=== PATIENT | female | born 1965 | race African-American/Black ===

== ENCOUNTER → 2017-03-11 | Outpatient (CLI) | payer MEDICARE, OTHER ==
--- NOTE | 2017-03-11 16:46 | RADIOLOGY REPORT (SQ) ---
EXAM DESCRIPTION: CT FACIAL AREA WITHOUT COMPLETED DATE/TIME: 03/11/2017 3:59 pm REASON FOR STUDY: CHRONIC SINUSITIS, UNSPECIFIED J32.9 CHRONIC SINUSITIS, UNSPECIFIED COMPARISON: None. TECHNIQUE: Noncontrasted images through the facial bones and orbits windowed for bone and soft tissu e. Additional coronal and sagittal reconstructed images reviewed. All images stored on PACS. All CT scanners at this facility use dose modulation, iterative reconstruction, and/or weight based d osing when appropriate to reduce radiation dose to as low as reasonably achievable (ALARA). [facility]: Dose Right [facility]: CareDose [facility]: Dose Right [facility]: Teradose 4D [facility]: uchoose RADIATION DOSE: Total exam DLP: 742 mGy cm. LIMITATIONS: None. FINDINGS: FACIAL BONES: No fracture or bone lesion. Degenerative joint changes seen in the temporom andibular joints. ORBITS: Intact. No fracture. Symmetric intact globes and retroorbital soft tissues. PARANASAL SINUSES: Clear. No significant mucosal thickening, mass or fluid. No nasal polyps. Maxill andrzej sinus outlets are patent. SOFT TISSUES: No mass or edema. INFERIOR BRAIN: No significant abnormality. OTHER: No other significant finding. IMPRESSION: 1. Normal sinuses. 2. Degenerative joint disease in the temporomandibular joints bilaterally. TECHNICAL DOCUMENTATION: JOB ID: [id number] Quality ID # [id number]: Final reports with documentation of one or more dose reduction techniques (e.g., Au tomated exposure control, adjustment of the mA and/or kV according to patient size, use of iterative reconstruction technique) 2010 [employer]- All Rights Reserved
== END ==
LOC: RAD 15:22
PROVIDERS: ATTEND Internal Medicine
DX: J32.9 Chronic sinusitis, unspecified (principal)
CPT/HCPCS: 70486

== ENCOUNTER 2018-01-17 20:10 | Emergency (ER) | payer MEDICARE, OTHER ==
--- NOTE | 2018-01-17 20:46 | EKG REPORT ---
SEVERITY:- ABNORMAL ECG - SINUS RHYTHM PROBABLE INFERIOR INFARCT, AGE INDETERMINATE BORDERLINE R WAVE PROGRESSION, ANTERIOR LEADS : Confirmed by: Estevan Li 17-Jan-2018 20:45:29
--- NOTE | 2018-01-17 21:00 | ER Document Report ---
ED General - General Chief Complaint: Breathing Difficulty Stated Complaint: DIFFICULTY BREATHING Time Seen by Provider: 01/17/18 20:29 Cannot obtain history due to: Uncooperative Notes: Patient is a 52-year-old female who presents with a chief complaint of left foot pain with associated left foot swelling. She states that this started after she stepped on something in her home yesterday. She states that since that time she has had swelling to the entirety of the left leg. She denies a history of similar symptoms in the past. She is unable to identify what improves or worsens her discomfort the leg. Notes that she has been able to walk. She has not seen her general doctor regarding this concern. She denies fever or constitutional symptoms. Although in triage patient apparently initially complained of shortness of breath when I initially bring this concern up to her she angrily replies "I cannot believe that you think I have shortness of breath and loss of voice, where did you get that idea?" When I informed the patient that this is based on triage assessment she states "I was driving here to have the left foot looked at when I became a little short of breath. This is definitely not how I normally breathe". When I asked her to clarify her shortness of breath she does become quite agitated, refuses to further clarify. TRAVEL OUTSIDE OF THE [place] IN LAST 30 DAYS: No Past Medical History - General Information source: Patient - Social History Smoking Status: Never Smoker Chew tobacco use (# tins/day): No Frequency of alcohol use: None Drug Abuse: None Family History: Reviewed & Not Pertinent Patient has suicidal ideation: No Patient has homicidal ideation: No Endocrine Medical History: Reports: Hx Diabetes Mellitus Type 2 Renal/ Medical History: Denies: Hx Peritoneal Dialysis Musculoskeletal Medical History: Reports Hx Arthritis - RA Past Surgical History: Reports: Hx Hysterectomy, Hx Orthopedic Surgery - bilateral hip replacement Review of Systems - Review of Systems Notes: Constitutional: Negative for fever. HENT: Negative for sore throat. Eyes: Negative for visual changes. Cardiovascular: Negative for chest pain. Respiratory: Positive for shortness of breath. Gastrointestinal: Negative for abdominal pain, vomiting or diarrhea. Genitourinary: Negative for dysuria. Musculoskeletal: Positive for left foot pain and left leg pain Skin: Negative for rash. Neurological: Negative for headaches, weakness or numbness. 10 point ROS negative except as marked above and in HPI. Physical Exam - Vital signs Vitals: Temp Pulse Resp BP Pulse Ox 97.8 F 86 24 H 137/78 H 100 01/17/18 20:26 01/17/18 20:26 01/17/18 20:26 01/17/18 20:26 01/17/18 20:26 Interpretation: Normal - Patient is not tachypneic at the time of my assessment Notes: PHYSICAL EXAMINATION: GENERAL: Well-appearing, well-nourished and in no acute distress. HEAD: Atraumatic, normocephalic. EYES: Pupils equal round and reactive to light, extraocular movements intact, sclera anicteric, conjunctiva are normal. ENT: nares patent, oropharynx clear without exudates. Moist mucous membranes. NECK: Normal range of motion, supple without lymphadenopathy LUNGS: Breath sounds clear to auscultation bilaterally and equal. No wheezes rales or rhonchi. HEART: Regular rate and rhythm without murmurs ABDOMEN: Soft, obese abdomen, nontender, normoactive bowel sounds. No guarding , no rebound. No masses appreciated. EXTREMITIES: Normal range of motion, no pitting or edema. No cyanosis. NEUROLOGICAL: No focal neurological deficits. Moves all extremities spontaneously and on command. PSYCH: Speaking in a very loud, aggressive tone. Gives very terse answers to my questions. SKIN: Warm, Dry, normal turgor, there is a small ecchymosis to the medial, mid plantar aspect of the left foot. There is no appreciable swelling or edema of the foot. Course - Re-evaluation Re-evalutation: 01/17/18 20:59 Patient presents with multiple and varying complaints. Her initial concern is that she stepped on something in her house with her left foot yesterday and has been having swelling and pain to the entirety of her left leg that is not appreciable on examination. There is no notable erythema, warmth to the extremity, no appreciable edema or pain behind the popliteal fossa of the left lower extremity. She does have risks for venous thromboses including lupus and rheumatoid arthritis. The patient also states that while being transported to the emergency department she began having "breathing that is different than my normal". She is saturating 100% on room air, not tachycardic, not tachypneic, very low clinical suspicion for an acute pneumonia, pulmonary embolus, pneumothorax. Will obtain chest x-ray, basic labs, obtain x-ray of the left foot and venous ultrasound given the patient's complaint of subjective edema. 01/17/18 22:49 Patient has consistently refused labs. She refuses to allow us to draw anywhere other than her right antecubital fossa and has pulled out the needle when blood draws were initiating blood flow. The patient consistently states that she cannot breathe even though she is lying in bed without any discomfort, saturating 100% on room air breathing approximately 16-18 times per minute. She has no wheezes or rales. Her chest x-ray is clear. Her EKG is unremarkable. Of note, she becomes very angry when I state that she came today for SOB. The patient had complained of left lower extremity pain which she repeatedly states is the reason she came today. A venous Doppler and x-ray are unremarkable. I see no evidence of a laceration or any evidence of a cellulitis. The patient has consistently demonstrated unwillingness to comply with our treatment plan here in the emergency department and I do not believe that I have been able to successfully establish a therapeutic relationship with her in the emergency department. On multiple occasions have attempted to redirect the patient and encouraged her to comply with our prescribed treatment plan as I cannot definitively exclude ACS as an etiology of her reported shortness of breath without a troponin marker. However the patient has consistently declined blood draws and at this point I do not see how we can go forward. When I attempted to discuss options for going forward with the patient she stated "you and your entire staff here are completely incompetent". She repeatedly accuses me of not having listen to her complaint and refuses to allow me to answer her accusations. She continues comes back to the fact that she never said she was short of breath and that she was here for her left foot pain and left foot swelling. I did again advise the patient that she has repeatedly complained of shortness of breath including in triage, to the initial nursing assessment, as well as to me during my assessment. When I do get the patient to calm down to allow me to address her concerns, I advised her that we did hear her concerns regarding her left foot. I again reviewed her workup regarding her left leg and the results. Patient continues to be extremely agitated stating that this was not a sufficient workup. I have advised the patient that we could obtain blood from a different site which she refuses stating that are nurses and technicians do not know how to get blood, have hurt her, and that she will not allow any further draws. The patient has been extremely hostile since the beginning of our encounter. She states that I am supposed to speak to a doctor who has called to the emergency department but I have received no calls in regards this patient's care. At this point I have encouraged the patient to follow-up with her primary care doctor and have reviewed with her return precautions. She will be discharged. - Vital Signs Vital signs: Temp Pulse Resp BP Pulse Ox 97.8 F 86 20 124/81 100 01/17/18 20:26 01/17/18 20:26 01/17/18 23:00 01/17/18 22:01 01/17/18 21:34 - Laboratory Laboratory results interpreted by me: 01/17/18 21:31 POC Glucose 242 H - Diagnostic Test Radiology reviewed: Image reviewed, Reports reviewed Radiology results interpreted by me: 01/17/18 22:52 Chest x-ray: No acute infiltrate or pneumothorax Left foot x-ray: No acute fracture or dislocation. - EKG Interpretation by Me Additional EKG results interpreted by me: 01/17/18 22:53 Sinus rhythm. Rate 83. No ST elevations or depressions. QTC is 423. Discharge - Discharge Clinical Impression: Left foot pain, Left leg swelling, Shortness of breath Condition: Good Disposition: HOME, SELF-CARE Additional Instructions: You have been unwilling to allow us to perform blood draws today so we are unable to complete a full evaluation. However, your chest x-ray, EKG, ultrasound of your leg and x-ray of your foot are all normal and did not suggest any acute pathology. I encourage you to follow-up with your primary care doctor at your earliest ability. Please return for any additional concerns you may have including worsening or shortness of breath, worsening of your leg pain, vomiting, fever greater than 100.4F, or any other symptoms that are worrisome to you. Referrals: MORGAN GONZALEZ MD [Primary Care Provider] - Follow up as needed
--- NOTE | 2018-01-17 21:32 | RADIOLOGY REPORT (SQ) ---
EXAM DESCRIPTION: FOOT LEFT COMPLETE COMPLETED DATE/TIME: 01/17/2018 9:23 pm REASON FOR STUDY: left foot pain COMPARISON: None. NUMBER OF VIEWS: Three views. TECHNIQUE: AP, lateral and oblique radiographic images acquired of the left foot. LIMITATIONS: None. FINDINGS: MINERALIZATION: Normal. BONES: No acute fracture or dislocation. No worrisome bone lesions. JOINTS: No effusions. Midfoot degenerative changes are present. SOFT TISSUES: No soft tissue swelling. No foreign body. OTHER: No other significant finding. IMPRESSION: No evidence of acute osseous injury. TECHNICAL DOCUMENTATION: JOB ID: [id number] [employer]- All Rights Reserved Reading location - IP/workstation name: [email or web address]
--- NOTE | 2018-01-17 21:33 | RADIOLOGY REPORT (SQ) ---
EXAM DESCRIPTION: CHEST SINGLE VIEW COMPLETED DATE/TIME: 01/17/2018 9:23 pm REASON FOR STUDY: sob COMPARISON: None. EXAM PARAMETERS: NUMBER OF VIEWS: One view. TECHNIQUE: Single frontal radiographic view of the chest acquired. RADIATION DOSE: NA LIMITATIONS: None. FINDINGS: LUNGS AND PLEURA: No opacities, masses or pneumothorax. No pleural effusion. MEDIASTINUM AND HILAR STRUCTURES: No masses. Contour normal. HEART AND VASCULAR STRUCTURES: Heart normal in size. Normal vasculature. BONES: Marked degenerative changes of the bilateral glenohumeral joints. HARDWARE: None in the chest. OTHER: No other significant finding. IMPRESSION: NO ACUTE RADIOGRAPHIC FINDING IN THE CHEST. TECHNICAL DOCUMENTATION: JOB ID: [id number] [employer]- All Rights Reserved Reading location - IP/workstation name: [email or web address]
--- NOTE | 2018-01-17 22:14 | RADIOLOGY REPORT (SQ) ---
EXAM DESCRIPTION: VENOUS UNILATERAL LOWER COMPLETED DATE/TIME: 01/17/2018 10:07 pm REASON FOR STUDY: left leg swelling COMPARISON: None. TECHNIQUE: Dynamic and static araiza scale and color images acquired of the left leg venous system. Se lected spectral images acquired with additional compression and augmentation maneuvers. The contralat eral common femoral vein and saphenofemoral junction were also imaged. Images stored on PACS. LIMITATIONS: None. FINDINGS: COMMON FEMORAL: Normal phasicity, compression and augmentation. No visualized echogenic ma terial on araiza scale. No defects on color images. FEMORAL: Normal compression and augmentation. No visualized echogenic material on araiza scale. No defe cts on color images. POPLITEAL: Normal compression, augmentation. No visualized echogenic material on araiza scale. No defec ts on color images. CALF VESSELS: Normal compression, augmentation. No visualized echogenic material on araiza scale. No de fects on color images. GSV and SSV: Normal compression, augmentation. No visualized echogenic material on araiza scale. No def ects on color images. ANY DEEP VENOUS INSUFFICIENCY: Not evaluated. ANY EVIDENCE OF POPLITEAL CYST: No. OTHER: No other significant finding. CONTRALATERAL COMMON FEMORAL VEIN AND SAPHENOFEMORAL JUNCTION: Normal phasicity, compression and augmentation. No visualized echogenic material on araiza scale. No de fects on color images. IMPRESSION: NO EVIDENCE OF DVT OR SVT IN THE LEFT LEG. TECHNICAL DOCUMENTATION: JOB ID: [id number] [employer] All Rights Reserved Reading location - IP/workstation name: [email or web address]
[2018-01-17] MEDS ORDERED: IPRATROPIUM/ALBUTEROL 0.5-2.5 MG/3 ML AMPUL NEB ONE (22:31)
[2018-01-17 23:48] VITALS: BP 124/81
== END 2018-01-17 23:00 | disposition home or self-care (01) ==
LOC: ER 20:10
DX: M79.672 Pain in left foot (principal); R22.42 Localized swelling, mass and lump, left lower limb; R06.02 Shortness of breath; R06.00 Dyspnea, unspecified; E11.9 Type 2 diabetes mellitus without complications; Z90.710 Acquired absence of both cervix and uterus; Z96.643 Presence of artificial hip joint, bilateral
CPT/HCPCS: 71045; 82962; 93005; 93010; 93971; 99285

== ENCOUNTER 2019-06-18 13:50 | Emergency (ER) | payer MEDICARE, OTHER ==
--- NOTE | 2019-06-18 14:59 | ER Document Report ---
Doctor's Note Notes: 06/18/19 14:56 I clicked on this patient's chart while she was being pulled into triage, he noticed an outpatient visit for today's date by her primary care provider Dr. Toscano. I call placed a call to Dr. Toscano to inquire if patient was supposed to be seen for an outpatient test versus ER visit. He indicated that the patient had an elevated creatinine recently and that he wanted her to have a CAT scan but wanted her to be seen as an ER patient. While I was on the phone with Dr. Toscano the patient was speaking with a patient advocate as well as security in reference to her apparently recording on her phone in the lobby. During this time patient decided that she did not want to be seen in this emergency department. I did not physically see or evaluate this patient.
== END 2019-06-18 15:15 | disposition left against medical advice (07) ==
LOC: ER 13:50
DX: Z53.21 Procedure and treatment not carried out due to patient leaving prior to being seen by health care provider (principal); R10.9 Unspecified abdominal pain; R11.0 Nausea

== ENCOUNTER → 2019-06-18 | Outpatient (CLI) | payer MEDICARE, OTHER | LOC: RAD 12:44 | PROVIDERS: ATTEND Internal Medicine | DX: R10.84 Generalized abdominal pain (principal) | CPT/HCPCS: 82565 ==